=== PATIENT | female | born 1980 | race Caucasian/White ===

== ENCOUNTER 2017-10-10 17:31 | Emergency (ER) | payer SELFPAY ==
[2017-10-10] MEDS ORDERED: 0.9 % SODIUM CHLORIDE 1000ML 1,000 ML IV SCH (18:15)
--- NOTE | 2017-10-10 18:16 | Emergency Department Record ---
History of Present Illness - General Chief complaint: Hypergylcemia Stated complaint: HIGH BLOOD SUGER Time Seen by Provider: 10/10/17 18:03 Source: Patient Mode of Arrival: Ambulatory Limitations: No limitations - History of Present Illness Initial comments: 37 yo female presents to ED for evaluation of feeling fatigued associated with fluctuating blood sugar readings. Patient reports that her symptoms began 2-3 weeks ago, denies current history of DM, but does report severe gestational diabetes 1 year ago while . Patient reports that she has been checking her blood sugar at home, has been ranging from 80's to >400 intermittently. Patient denies recent illness, fevers, chills, cough, or urinary symptoms. Patient also denies any new medications. Patient does take Vimpat for epilepsy which is well controlled (last seizure was 2013). MD Complaint: Generalized weakness Onset/Timin -: Week(s) Location: Generalized Severity: Moderate Consistency: Constant Improves with: None Worsens with: None Associated Symptoms: Other - [place] Coma Scale Eye Response: (4) Open spontaneously Motor Response: (6) Obeys commands Verbal Response: (5) Oriented [place] Total: 15 - Related Data Allergies Allergy/AdvReac Type Severity Reaction Status Date / Time levofloxacin [From Levaquin] Allergy Severe ANAPHYLAXIS Unverified 07/13/17 08: 13 morphine Allergy Severe ANAPHYLAXIS Unverified 07/13/17 08:13 /RASH latex Allergy Intermediate RASH Unverified 07/13/17 08:13 Travel Screening - Travel/Exposure Within Last 30 Days Have you traveled within the last 30 days?: No Review of Systems Constitutional: Reports: Weakness. Denies: Chills, Fever, Malaise, Night sweats Eyes: Denies: Eye discharge, Eye pain ENT: Denies: Congestion, Ear pain, Epistaxis Respiratory: Denies: Cough, Dyspnea Cardiovascular: Denies: Chest pain, Dyspnea on exertion Endocrine: Reports: Fatigue. Denies: Heat or cold intolerance Gastrointestinal: Reports: Abdominal pain, Nausea. Denies: Vomiting Genitourinary: Denies: Incontinence, Retention Musculoskeletal: Denies: Arthralgia, Back pain Skin: Denies: Bruising, Change in color Neurological: Denies: Abnormal gait, Confusion, Headache, Numbness, Tingling Psychiatric: Denies: Anxiety Hematological/Lymphatic: Denies: Anemia, Blood Clots Past Medical History - SOCIAL HISTORY Smoking Status: Never smoker - RESPIRATORY Hx Respiratory Disorders: No - CARDIOVASCULAR Hx Cardio Disorders: No - NEURO Hx Neuro Disorders: Yes Hx Seizures: Yes (epilepsy) - GI Hx GI Disorders: No - Hx Genitourinary Disorders: No Comment:: endometriosis, PCOS - ENDOCRINE Hx Endocrine Disorders: Yes Hx Diabetes: Yes (gestational) Hx Thyroid Disease: No - MUSCULOSKELETAL Hx Musculoskeletal Disorders: Yes Hx Arthritis: Yes (Left knee) - PSYCH Hx Psych Problems: Yes Hx Anxiety: Yes - HEMATOLOGY/ONCOLOGY Hx Hematology/Oncology Disorders: No Family Medical History Any Significant Family History?: Yes Hx Heart Disease: Father Physical Exam - General General Appearance: Alert, Oriented x3, Cooperative, Mild distress, Other (Accu check on arrival is 87.) Limitations: No limitations - Head Head exam: Atraumatic, Normocephalic, Normal inspection Head exam detail: negative: Abrasion, Contusion, Bauer's sign, General tenderness, Hematoma, Laceration - Eye Eye exam: Normal appearance. negative: Conjunctival injection, Periorbital swelling, Periorbital tenderness, Scleral icterus - ENT Ear exam: negative: Auricular hematoma, Auricular trauma Nasal Exam: negative: Active bleeding, Discharge, Dried blood, Foreign body Mouth exam: negative: Drooling, Laceration, Tongue elevation - Neck Neck exam: Normal inspection. negative: Meningismus, Tenderness - Respiratory Respiratory exam: Normal lung sounds bilaterally. negative: Rhonchi, Stridor, Wheezes - Cardiovascular Cardiovascular Exam: Regular rate, Normal rhythm, Normal heart sounds - GI/Abdominal GI/Abdominal exam: Soft. negative: Distended, Rebound, Rigid, Tenderness - Rectal Rectal exam: Deferred - exam: Deferred - Extremities Extremities exam: Normal inspection. negative: Calf tenderness, Pedal edema, Tenderness - Back Back exam: Denies: CVA tenderness (R), CVA tenderness (L) - Neurological Neurological exam: Alert, Normal gait, Oriented X3 - Psychiatric Psychiatric exam: Normal affect, Normal mood - Skin Skin exam: Normal color. negative: Abrasion Type of lesion: negative: abrasion Course Vital Signs 10/10/17 18:04 Temperature 98.2 F Pulse Rate 125 H Respiratory 20 Rate Blood Pressure 147/114 Pulse Ox 100 - Reevaluation(s) Reevaluation #1: 10/10/17 18:30 EKG: NSR 74 Normal axis, normal intervals No acute ST-T wave changes present Reevaluation #2: 10/10/17 19:55 Patient was updated on all laboratory results thus far which are grossly unremarkable for an acute process. TSH and UA are pending at this time. Repeat Glucose 114. Patient does report improvement in her symptoms while in the ED as well. Will update the patient on pending TSH and UA when resulted. Reevaluation #3: 10/10/17 20:05 TSH and UA appear negative for an acute abnormality. Will discuss follow-up with the patient's PCP. Reevaluation #4: 10/10/17 20:28 Case was discussed with Dr. Del Rosario, will arrange for close follow-up and possible HgA1C for further evaluation. Patient is otherwise well appearing and appears stable for discharge at this time. Medical Decision Making - Lab Data Result diagrams: 10/10/17 19:15 10/10/17 19:15 Lab Results 10/10/17 Range/Units 18:07 POC Glucose 87 (70-110) mg/dL Disposition Disposition: Discharge Clinical Impression: Fatigue Qualifiers: Fatigue type: unspecified Qualified Code(s): R53.83 - Other fatigue Disposition: Home, Self-Care Condition: (2) Stable Instructions: Fatigue (ED) Additional Instructions: Return to ED if your symptoms worsen or if you have any concerns. Follow-up with Mireille Thakkar in 3-5 days as directed. Forms: Patient Portal Access Time of Disposition: 20:29 Quality - Quality Measures Quality Measures: N/A - Blood Pressure Screening Does Patient Have Any of the Following: No Blood Pressure Classification: Hypertensive Reading Systolic Measurement: 147 Diastolic Measurement: 114 Screening for High Blood Pressure: < First Hypertensive BP, F/U Documented > [ [id number]] First Hypertensive Follow-up Interventions: Referral to alternative/primary care provider.
[2017-10-10 19:19] LABS: BASO % 0.1 % (0-6); HEMATOCRIT 37.8 % (35.0-47.0); HEMOGLOBIN 13.2 gm/dl (11.6-16.0); LYMPH % 28.6 % (16-45); MEAN CELL VOLUME 85.7 fl (81-97); MEAN CORPUSCULAR HEMOGLOBIN 29.9 pg (27-33); MEAN CORPUSCULAR HGB CONC 34.9 g/dl (32-36); MEAN PLATELET VOLUME 9.4 fl (7.4-10.4); MONO % 11.3 % (0-9); PLATELET COUNT 300 K/uL (130-400); RED BLOOD COUNT 4.41 M/uL (3.80-5.40); RED CELL DISTRIBUTION WIDTH 13.1 % (11.5-14.5); WHITE BLOOD COUNT W/O DIFF 7.1 K/uL (4.2-12.2)
[2017-10-10 19:43] LABS: ALB/GLOB RATIO 1.8 (1.1-1.8); ALBUMIN 4.4 g/dL (4.0-5.0); ALKALINE PHOSPHATASE 64 U/L (35-104); ALT/SGPT 11 U/L (<33); AST/SGOT 19 U/L (10.0-35.0); BLOOD UREA NITROGEN 10 mg/dL (6-20); CREATININE 0.6 mg/dL (0.5-0.9); EST GLOMERULAR FILTRATION RATE > 60 mL/min; GLUCOSE,RANDOM 114 mg/dL (74-109); TOTAL PROTEIN 6.8 g/dL (6.6-8.7)
[2017-10-10 19:52] LABS: THYROID STIMULATING HORMONE 0.85 uIU/mL (0.270-4.20)
[2017-10-10 19:55] LABS: URINE APPEARANCE CLEAR; URINE BILIRUBIN NEGATIVE (NEGATIVE); URINE BLOOD NEGATIVE (NEGATIVE); URINE COLOR YELLOW; URINE GLUCOSE (UA) NEGATIVE (NEGATIVE); URINE KETONE NEGATIVE (NEGATIVE); URINE LEUKOCYTE ESTERASE NEGATIVE (NEGATIVE); URINE NITRITE POSITIVE (NEGATIVE); URINE PROTEIN NEGATIVE (NEGATIVE); URINE UROBILINOGEN 0.2 E.U./dL (0.20 - 1.00)
[2017-10-10 20:04] LABS: URINE EPITHELIAL CELLS 0 - 2 (FEW); URINE RBC 0 - 2 (NONE SEEN); URINE WBC 0 - 2 (0-2/hpf)
[2017-10-10 20:05] LABS: HCG,QUALITATIVE URINE NEGATIVE (NEGATIVE)
== END 2017-10-10 20:37 | disposition home or self-care (01) ==
LOC: ER 17:31
DX: R53.83 Other fatigue (principal); R53.1 Weakness; G40.909 Epilepsy, unspecified, not intractable, without status epilepticus
CPT/HCPCS: 36416; 80053; 81001; 81025; 82948; 84443; 85025; 93005; 93010; 99284